=== PATIENT | male | born 1965 | race African-American/Black ===

== ENCOUNTER 2016-12-08 00:18 | Emergency (ER) | payer MEDICARE, OTHER ==
[~2016-12-08] VITALS: Ht 193 cm; Wt 102.1 kg
[2016-12-08 00:36] VITALS: BP 123/60
== END 2016-12-08 02:12 | disposition home or self-care (01) ==
LOC: ER 00:27
DX: H60.91 Unspecified otitis externa, right ear (principal); G70.00 Myasthenia gravis without (acute) exacerbation
CPT/HCPCS: 99283; A4606; Z7610